=== PATIENT | female | born 1995 | race Caucasian/White ===

== ENCOUNTER 2016-03-28 08:56 | Emergency (ER) | payer OTHER ==
[~2016-03-28] VITALS: Ht 157.5 cm; Wt 50.0 kg
[~2016-03-28 08:56] MED LIST: BACTRIM,SEPT1 TABLET PO; BENTYL10 MG PO; CLINDAMYCIN HC300 MG PO; IBUPROFEN800 MG PO; KEFLEX500 MG PO; LORTAB 5-325 M1 EACH PO; MACROBID100 MG PO; NORCO 5/3251 TABLET PO; ZOFRAN4 MG PO
[2016-03-28 11:00] LABS: ADD MIUA? YES; BILIRUBIN NEGATIVE; BLOOD LARGE; COLOR YELLOW ((YELLOW)); GLUCOSE (STRIP) NEGATIVE; KETONES NEGATIVE; LEUKOCYTES SMALL; NITRITE NEGATIVE; PROTEIN (STRIP) NEGATIVE; SPECIFIC GRAVITY 1.019 (1.000-1.030); UROBILINOGEN 0.2 MG/DL (0.2-1.0)
[2016-03-28 11:01] LABS: INTERNAL CONTROL VALID? YES
[2016-03-28] MEDS ORDERED: ZOFRAN4 MG PO (11:11)
[2016-03-28] MEDS ORDERED: MOTRIN600 MG PO (11:11)
[2016-03-28 11:23] LABS: BACTERIA 1+; CASTS NONE SEEN /LPF; CRYSTALS NONE SEEN; EPITHELIAL CELLS 1+; MUCUS NONE SEEN; WHITE BLOOD CELLS RARE /HPF (0-5)
[2016-03-28 11:41] VITALS: BP 99/70
== END 2016-03-28 11:43 | disposition home or self-care (01) ==
LOC: EME 08:56
PROVIDERS: Emergency Medicine
DX: N94.6 Dysmenorrhea, unspecified (principal); F17.200 Nicotine dependence, unspecified, uncomplicated
CPT/HCPCS: 81003; 84703; 99281; 99284